=== PATIENT | female | born 1990 | race Caucasian/White ===

== ENCOUNTER 2019-09-09 15:25 | Emergency (ER) | payer SELFPAY ==
[~2019-09-09] VITALS: Ht 172.7 cm; Wt 68.2 kg
[2019-09-09 16:02] LABS: HEMOGLOBIN 14.9 g/dL (12.5-16.0); MEAN CELL VOLUME 90 fl (78-100); MEAN CORPUSCULAR HEMOGLOBIN 31 pg (27-31); MEAN CORPUSCULAR HGB CONC 35 g/dL (33-37); PLATELET COUNT 325 K/mm3 (130-400); RED BLOOD COUNT 4.76 M/mm3 (4.10-5.30); RED CELL DISTRIBUTION WIDTH 11.7 % (11.5-14.5); WHITE BLOOD COUNT 10.2 K/mm3 (4.8-10.8)
[2019-09-09 16:10] LABS: ALBUMIN 4.8 g/dL (3.5-5.0); POTASSIUM 3.7 mmol/L (3.5-5.1); SODIUM 138 mmol/L (136-145)
[2019-09-09 16:11] LABS: CALCIUM 9.7 mg/dL (8.3-10.5)
[2019-09-09 16:12] LABS: GLUCOSE 125 mg/dL (65-105); TOTAL PROTEIN 8.1 g/dL (6.4-8.3)
[2019-09-09 16:13] LABS: CARBON DIOXIDE 18 mmol/L (22-29)
[2019-09-09 16:14] LABS: TOTAL BILIRUBIN 0.5 mg/dL (0.2-1.2)
[2019-09-09 16:15] LABS: ALCOHOL IN-HOUSE < 10 mg/dL (<10)
[2019-09-09 16:17] LABS: AST-SGOT 16 U/L (5-34)
[2019-09-09 16:19] LABS: ALT/SGPT 17 U/L (0-55)
[2019-09-09 16:21] LABS: ACETAMINOPHEN < 1 ug/mL
[2019-09-09 16:33] LABS: LYMPHOCYTE 11 % (20-51); MONOCYTE 11 % (3-10); NEUTROPHILS 78 % (42-75)
[2019-09-09 17:00] VITALS: BP 110/76
== END 2019-09-09 21:15 | disposition home or self-care (01) ==
LOC: ED 15:25
PROVIDERS: Nurse Practitioner Family
DX: R45.851 Suicidal ideations (principal); F23 Brief psychotic disorder; F41.9 Anxiety disorder, unspecified; F32.9 Major depressive disorder, single episode, unspecified; F17.210 Nicotine dependence, cigarettes, uncomplicated

== ENCOUNTER 2019-10-18 18:53 | Emergency (ER) | payer SELFPAY ==
[~2019-10-18] VITALS: Wt 68.2 kg
[2019-10-18] MEDS ORDERED: AMBIEN5 M1 (19:07)
[2019-10-18 20:35] VITALS: BP 125/91
== END 2019-10-18 20:35 | disposition home or self-care (01) ==
LOC: ED 18:53
DX: S61.215A Laceration without foreign body of left ring finger without damage to nail, initial encounter (principal); Z23 Encounter for immunization; W26.8XXA Contact with other sharp object(s), not elsewhere classified, initial encounter; Y92.009 Unspecified place in unspecified non-institutional (private) residence as the place of occurrence of the external cause
CPT/HCPCS: 90715